=== PATIENT | male | born 1965 | race African-American/Black ===

== ENCOUNTER 2024-07-12 21:51 | Emergency (ER) | payer SELFPAY ==
[~2024-07-12 21:51] MED LIST: BACTRIM DS1 TAB PO
[2024-07-12 22:39] VITALS: BP 0/0
== END 2024-07-12 22:03 | disposition left against medical advice (07) | DRG 951 ==
LOC: ED 21:51 → LWOBS 22:03
DX: Z53.21 Procedure and treatment not carried out due to patient leaving prior to being seen by health care provider (principal)

== ENCOUNTER 2024-08-19 15:07 | Emergency (ER) | payer OTHER ==
[~2024-08-19] VITALS: Ht 172.7 cm
== END 2024-08-19 15:17 | disposition home or self-care (01) | DRG 951 ==
LOC: ED 15:07
DX: Z04.89 Encounter for examination and observation for other specified reasons (principal); R45.1 Restlessness and agitation